=== PATIENT | female | born 1935 | race African-American/Black ===

== ENCOUNTER 2018-02-14 13:48 | Outpatient (CLI) | payer MEDICARE, MEDICAID | END 2018-02-14 13:49 | disposition home or self-care (01) | LOC: BICRAD 13:48 | PROVIDERS: ATTEND Internal Medicine | DX: I70.0 Atherosclerosis of aorta (principal); R05 Cough | CPT/HCPCS: 71046 ==

== ENCOUNTER 2020-09-08 14:10 | Outpatient (CLI) | payer MEDICARE, MEDICAID ==
--- NOTE | 2020-09-08 15:12 | RAD ---
ABDOMEN TWO VIEWS: 09/08/20 HISTORY: Right sided abdominal pain. FINDINGS/IMPRESSION: No free air or differential fluid levels are seen. The bowel gas pattern is unremarkable. Postop madrigal ges are present. There are degenerative changes in the spine. No suspicious calcifications are seen. POS: AH
== END 2020-09-08 14:11 | disposition home or self-care (01) ==
LOC: BICRAD 14:10
PROVIDERS: ATTEND Internal Medicine
DX: R10.9 Unspecified abdominal pain (principal); M47.819 Spondylosis without myelopathy or radiculopathy, site unspecified; Z98.890 Other specified postprocedural states
CPT/HCPCS: 74019

== ENCOUNTER 2022-08-24 13:24 | Day surgery (SDC) | payer OTHER ==
[2022-08-24] MEDS ORDERED: Gentamicin 350 MG, Admixture Fee 1 EACH in Sodium Chloride 0.9% 100 ML IVPB SCH (13:45)
[2022-08-24 15:59] VITALS: BP 157/72; TEMP 97.9
== END 2022-08-24 16:00 | disposition home or self-care (01) ==
LOC: ONC/OP 13:24
PROVIDERS: ATTEND Family Medicine
DX: N39.0 Urinary tract infection, site not specified (principal); Z16.35 Resistance to multiple antimicrobial drugs; Z88.5 Allergy status to narcotic agent
CPT/HCPCS: 96365; J1580

== ENCOUNTER 2023-01-09 18:10 | Emergency (ER) | payer OTHER ==
[2023-01-09 20:41] LABS: #Eosinphils 0.1 thou/uL (0.0-0.7); #Lymphocytes 2.7 thou/uL (1.20-3.40); #Monocytes 0.8 thou/uL (0.11-0.59); #Neutrophils 3.9 thou/uL (1.40-6.50); %Basophils 0.7 % (0.0-1.0); %Eosinophils 1.5 % (0.0-10.0); %Lymphocytes 35.5 % (21.0-51.0); %Monocytes 10.8 % (0.0-10.0); %Neutrophils 51.5 % (42.0-75.0); Hemoglobin 13.6 g/dL (12.0-16.0); Mean Corpuscular HGB CONC 31.9 g/dL (32.0-36.0); Mean Corpuscular Hemoglobin 29.7 pg (27.0-31.0); Mean Platelet Volume 8.2 fL (7.4-10.4); Platelet Count 188 10x3/uL (130-400); Red Blood Cell (RBC) Count 4.58 mill/uL (4.20-5.40); White Blood Cell (WBC) Count 7.5 10x3/uL (4.8-10.8)
[2023-01-09 21:07] LABS: ALT (SGPT) 10 U/L (8-55); AST (SGOT) 21 U/L (5-34); Albumin 4.1 g/dL (3.4-4.8); Alkaline Phosphatase 71 U/L (40-110); Anion Gap 18 mmol/L (10-20); BUN (Urea Nitrogen) 19 mg/dL (9.8-20.1); Bilirubin, Total 0.7 mg/dL (0.2-1.2); Calc. Creatinine Clearance 0 mL/min (70-130); Calcium 9.9 mg/dL (7.8-10.44); Carbon Dioxide 21 mmol/L (23-31); Chloride 107 mmol/L (98-107); Estimated GFR 49; Globulin 3.8 g/dL (2.4-3.5); Glucose 89 mg/dL (83-110); Protein, Total 7.9 g/dL (5.8-8.1); Sodium 142 mmol/L (136-145)
[2023-01-09] MEDS ORDERED: HYDROcodone/Acetaminophen 5/325 mg Tablet ONE (21:07)
== END 2023-01-09 21:20 | disposition home or self-care (01) ==
LOC: ERS 18:10
DX: M19.072 Primary osteoarthritis, left ankle and foot (principal); E78.5 Hyperlipidemia, unspecified; I25.10 Atherosclerotic heart disease of native coronary artery without angina pectoris; I10 Essential (primary) hypertension; K21.9 Gastro-esophageal reflux disease without esophagitis; Z87.891 Personal history of nicotine dependence
CPT/HCPCS: 36415; 80053; 83735; 85025

== ENCOUNTER 2024-02-25 10:26 | Outpatient (CLI) | payer MEDICARE, OTHER | END 2024-02-25 10:27 | disposition home or self-care (01) | LOC: SCSRAD 10:26 | PROVIDERS: ATTEND Family Medicine | DX: M54.50 Low back pain, unspecified (principal); R05.3 Chronic cough; M47.816 Spondylosis without myelopathy or radiculopathy, lumbar region; R91.8 Other nonspecific abnormal finding of lung field; R10.31 Right lower quadrant pain; R63.4 Abnormal weight loss | CPT/HCPCS: 36415; 71046; 72100; 80053; 81001; 84436; 84443; 84480; 85025 ==

== ENCOUNTER 2024-04-08 12:30 | Outpatient (CLI) | payer OTHER, MEDICAID | END 2024-04-08 12:31 | LOC: PET 12:30 | PROVIDERS: ATTEND Internal Medicine | DX: R91.8 Other nonspecific abnormal finding of lung field (principal); J18.1 Lobar pneumonia, unspecified organism; J98.4 Other disorders of lung | CPT/HCPCS: 78815; A9552 ==

== ENCOUNTER 2024-08-08 11:14 | Outpatient (CLI) | payer OTHER | END 2024-08-08 11:15 | disposition home or self-care (01) | LOC: RAD 11:14 | PROVIDERS: ATTEND Internal Medicine | DX: R06.00 Dyspnea, unspecified (principal) | CPT/HCPCS: 71046 ==